=== PATIENT | female | born 1960 | race Caucasian/White ===

== ENCOUNTER 2018-02-19 15:15 | Emergency (ER) | payer MEDICARE, OTHER ==
--- NOTE | 2018-02-19 17:57 | RAD ---
RIGHT ANKLE THREE VIEWS: 02/19/18 No acute fracture was seen. There might have been an old injury to the distal fibular shaft above the malleolus. The ankle joint is slightly narrowed by smooth. There are no areas of bony destruction. A calcaneal spur was noted. IMPRESSION: Old changes but no acute finding. POS: HOME
== END 2018-02-19 16:00 | disposition home or self-care (01) ==
LOC: BURERS 15:15
DX: M25.571 Pain in right ankle and joints of right foot (principal); E03.9 Hypothyroidism, unspecified; F17.210 Nicotine dependence, cigarettes, uncomplicated; Z79.899 Other long term (current) drug therapy